=== PATIENT | female | born 1950 | race Caucasian/White ===

== ENCOUNTER 2016-12-16 16:13 | Emergency (ER) | payer OTHER ==
[~2016-12-16] VITALS: Wt 72.6 kg
[~2016-12-16 16:13] MED LIST: ASPI-COR81 M1 PO; ATENOLOL50 M1 PO; CEPHALEXIN500 M1 PO; CIPROFLOXACIN500 MG PO; CLARITIN10 MG PO; DARVOCET N 1001 TAB PO; GEODON60 MG PO; GLUCOPHAGE850 M1 PO; HYDROCODONE BIT1 T11 PO; KEFLEX500 MG PO; LASIX20 MG; LEVOXYL0.088 MG PO; LEVOXYL0.1 M1 PO; LIDEX0.05% T; LIPITOR40 MG PO; METFORMIN500 MG PO; MOTRIN800 MG PO; NAPROSYN500 MG PO; OMEPRAZOLE DR20 MG PO; PYRIDIUM100 MG PO; PYRIDIUM200 MG PO; TRAZODONE100 MG PO; TRAZODONE150 MG PO; TYLENOL W/CODEI1 TA2 PO; ULTRAM50 MG PO; VICODIN 5/500 505 MG PO; VITAMIN D-32000 UNIT PO; VITAMIN D2000 IU PO; WELLBUTRIN SR150 MG PO; ZESTRIL,PRINIVIL5 MG PO; ZYRTEC10 MG PO; [UNRECOGNIZED DRUG - REMARK] PO
[2016-12-16 17:32] LABS: BILIRUBIN NEGATIVE (NEGATIVE); BLOOD 2+ (NEGATIVE); CLARITY CLOUDY (CLEAR); COLOR YELLOW (YELLOW); GLUCOSE NEGATIVE (NEGATIVE); KETONE NEGATIVE (NEGATIVE); LEUKO ESTERASE 3+ (NEGATIVE); NITRITE NEGATIVE (NEGATIVE); PROTEIN NEGATIVE (NEGATIVE); SPECIFIC GRAVITY <= 1.005 (1.005-1.030); UROBILINOGEN 0.2 E.U./dl (0.2-1.0)
[2016-12-16 17:40] LABS: BACTERIA 2+; URINE REFLEX COMMENT YES (NO); WBC TNTC wbc/hpf (0-5)
[2016-12-16] MEDS ORDERED: CIPRO250 MG PO (17:46)
[2016-12-16] MEDS ORDERED: PYRIDIUM100 MG PO (17:47)
[2016-12-16] MEDS ORDERED: CEPHALEXIN500 M1 PO (18:13)
== END 2016-12-16 18:16 | disposition home or self-care (01) ==
LOC: ED 16:13
PROVIDERS: Nurse Practitioner Family
DX: N30.00 Acute cystitis without hematuria (principal); Z88.1 Allergy status to other antibiotic agents; Z88.2 Allergy status to sulfonamides; Z91.018 Allergy to other foods; Z79.899 Other long term (current) drug therapy

== ENCOUNTER 2017-05-08 12:34 | Emergency (ER) | payer OTHER ==
[~2017-05-08] VITALS: Ht 167.6 cm; Wt 69.4 kg
[~2017-05-08 12:34] MED LIST changes: +CIPRO250 MG PO
[2017-05-08 12:44] VITALS: BP 152/85
[2017-05-08] MEDS ORDERED: Motrin,Rufen800 MG PO (15:55)
== END 2017-05-08 16:07 | disposition home or self-care (01) ==
LOC: ED 12:34
DX: S20.211A Contusion of right front wall of thorax, initial encounter (principal); Z88.1 Allergy status to other antibiotic agents; Z79.899 Other long term (current) drug therapy; Z79.82 Long term (current) use of aspirin; W18.30XA Fall on same level, unspecified, initial encounter; Y93.9 Activity, unspecified; Y92.9 Unspecified place or not applicable; Y99.9 Unspecified external cause status

== ENCOUNTER → 2017-09-04 | Outpatient (CLI) | payer MEDICARE, MEDICAID ==
[~2017-09-04] MED LIST changes: +Motrin,Rufen800 MG PO
== END | disposition home or self-care (01) ==
LOC: US 14:39
DX: N13.30 Unspecified hydronephrosis (principal); N19 Unspecified kidney failure

== ENCOUNTER → 2017-12-24 | Outpatient (CLI) | payer OTHER | END | disposition home or self-care (01) | LOC: MAMMO 12-04 08:00 | DX: Z12.31 Encounter for screening mammogram for malignant neoplasm of breast (principal) ==

== ENCOUNTER 2018-06-26 16:29 | Emergency (ER) | payer OTHER ==
[~2018-06-26] VITALS: Ht 167.6 cm; Wt 74.8 kg
[2018-06-26 17:24] LABS: BASO % 0.2 % (0.0-1.0); EOS # 0.3 10*3/uL (0.0-0.4); EOS % 3.9 % (1.0-4.0); HEMATOCRIT 28.8 % (37.0-47.0); HEMOGLOBIN 9.4 g/dl (12.0-16.0); LYMPH # 1.5 10*3/uL (1.3-4.4); LYMPH % 17.7 % (27.0-41.0); MEAN CELL VOLUME 81.8 fl (81.0-99.0); MEAN CORPUSCULAR HGB 26.7 pg (27.0-31.0); MEAN CORPUSCULAR HGB CONC 32.6 g/dl (33.0-37.0); MEAN PLATELET VOLUME 9.2 fl (9.6-12.3); MONO # 0.6 10*3/uL (0.1-1.0); MONO % 6.7 % (3.0-9.0); NEUT % 71.1 % (47.0-73.0); PLATELET COUNT AUTOMATED 265 10*3/uL (130-400); RED BLOOD COUNT 3.52 10*6/uL (4.10-5.10); RED CELL DISTRI WIDTH 16.4 % (0-14.5); WHITE BLOOD COUNT 8.4 10*3/uL (4.8-10.8)
[2018-06-26 17:40] LABS: ALBUMIN 3.2 gm/dl (3.1-4.5); CREATININE 1.44 mg/dL (0.55-1.02); POTASSIUM 4.1 mmol/L (3.5-5.1); TOTAL PROTEIN 7.1 gm/dL (6.4-8.2)
[2018-06-26 18:58] VITALS: BP 144/64
[2018-06-26] MEDS ORDERED: CLINDAMYCIN HC300 MG PO (19:53)
[2018-06-26] MEDS ORDERED: PREDNISONE50 MG PO (19:53)
[2018-06-26] MEDS ORDERED: DIFLUCAN150 MG PO (20:06)
[2018-06-26] MEDS ORDERED: VENTOLIN 02.5 MG/3 M INH (20:07)
[2018-06-27] MEDS ORDERED: PEPCID20 MG PO (16:34)
== END 2018-06-26 20:02 | disposition home or self-care (01) ==
LOC: ED 16:29
PROVIDERS: Nurse Practitioner Family
DX: J45.909 Unspecified asthma, uncomplicated (principal); K12.2 Cellulitis and abscess of mouth; Z98.890 Other specified postprocedural states; Z98.51 Tubal ligation status; Z79.899 Other long term (current) drug therapy; Z79.82 Long term (current) use of aspirin; Z88.1 Allergy status to other antibiotic agents; Z88.8 Allergy status to other drugs, medicaments and biological substances

== ENCOUNTER 2018-06-27 14:31 | Emergency (ER) | payer OTHER ==
[~2018-06-27] VITALS: Ht 167.6 cm; Wt 75.7 kg
[~2018-06-27 14:31] MED LIST changes: +CLINDAMYCIN HC300 MG PO; +DIFLUCAN150 MG PO; +PREDNISONE50 MG PO; +VENTOLIN 02.5 MG/3 M INH
[2018-06-27 14:32] VITALS: BP 142/68
[2018-06-27 15:29] LABS: CREATININE 1.43 mg/dL (0.55-1.02); POTASSIUM 3.8 mmol/L (3.5-5.1)
[2018-06-27] MEDS ORDERED: PEPCID20 MG PO (16:34)
== END 2018-06-27 16:39 | disposition home or self-care (01) ==
LOC: ED 14:31
PROVIDERS: Emergency Medicine
DX: L50.8 Other urticaria (principal); T36.8X5A Adverse effect of other systemic antibiotics, initial encounter; R22.0 Localized swelling, mass and lump, head; J45.909 Unspecified asthma, uncomplicated; Z98.890 Other specified postprocedural states; Z98.51 Tubal ligation status; Z79.899 Other long term (current) drug therapy; Z79.82 Long term (current) use of aspirin; Z88.1 Allergy status to other antibiotic agents; Z88.2 Allergy status to sulfonamides; Z88.8 Allergy status to other drugs, medicaments and biological substances; Y92.9 Unspecified place or not applicable

== ENCOUNTER 2018-07-06 15:58 | Inpatient (IN) | payer OTHER ==
[~2018-07-06] VITALS: Ht 167.6 cm; Wt 76.2 kg
--- NOTE | ~2018-07-06 | O ---
[place], [place] OPERATIVE NOTE NAME: [facility]AL [facility] #: [id number] UNIT #: [id number] ROOM: 405 DOCTOR: LIBRADO CORBETT DO BIRTHDATE: [birth year] DOS: 07/08/2018 PREOPERATIVE DIAGNOSIS: Right knee patella fracture. POSTOPERATIVE DIAGNOSIS: Right knee patella fracture. OPERATIVE PROCEDURE: Open reduction and internal fixation with cerclage wire technique of the right patella. SURGEON: Librado Corbett DO. WEATHER TEACHER: Lucian Santos. ANESTHESIA: GERONIMO Sullivan, general LMA intubation. INDICATIONS: The patient is a 67-year-old female with a history of a fall on an uneven sidewalk near her home. She suffered a fracture of the right patella, which was transverse and significantly displaced. The risks and benefits of the procedure were explained to the patient preoperatively. Preoperative labs and x-rays were obtained. DESCRIPTION OF PROCEDURE: The right knee was marked preoperatively. The patient was brought to the operative suite. The patient was placed supine on the operative table. A general anesthetic with LMA intubation was performed. The patient received vancomycin 1 gram IV piggyback preoperatively. The timeout was performed. The right leg was confirmed. The right lower extremity was prepped and draped in the usual orthopedic fashion. A tourniquet was placed at the right upper thigh. The extremity was elevated and the tourniquet was inflated to 350 mmHg. A midline patellar incision was planned and marked with a marking pen. The area was injected with Marcaine 0.5% with epinephrine. The incision was made sharply with a scalpel. Subcutaneous tissue was spread down to the level of the quadriceps tendon and bursal tissue and patellar tendon. The fracture was identified and cleared of any hematoma. Under C-arm guidance, two 0.062 K-wires were driven from the level of the fracture superiorly through the patella to exit at the attachment of the quadriceps tendon. The fracture was reduced and held with towel clips. C-arm was utilized to confirm the reduction. The K-wires were then driven through the distal pole of the patella to exit at the level of the patellar tendon attachment. C-arm was again used to confirm the fracture site, it was adequately reduced. The fracture was also palpated and found to be congruent. The K-wires were cut. A single strand of 18-gauge wire was wrapped about the K-wires in a [id number] fashion. On the medial side, the cerclage wire was tightened, cut and tucked into the soft tissue to avoid any impingement. An additional 18-gauge cerclage wire was then placed around the circumference of the patella and this was tightened and cut laterally and tucked to avoid any irritation. The proximal ends of the K-wire were then bent in a hook-type configuration and advanced into the patella for added stability. The distal ends of the wire was then cut and bent in a similar fashion. The fixation and [place], [place] OPERATIVE NOTE NAME: FAISAL WINN UNIT #: [id number] ROOM: [facility] DOCTOR: LIBRADO CORBETT DO BIRTHDATE: [birth year] reduction were evaluated by C-arm in multiple planes and found to be adequate. The area was copiously irrigated with normal saline. The retinaculum both medially and laterally was repaired with 0 Vicryl. Further irrigation was performed. The subcutaneous tissue was closed with 2-0 Vicryl followed by skin freddy. The area was again injected with Marcaine 0.5% with epinephrine. The dressing was completed with Xeroform, 4 x 4s, cast padding, ABDs, and an Mike bandage. The patient was then placed into her knee immobilizer. The tourniquet had been released prior to application of the dressing. The anesthetic was reversed. The patient was extubated and taken to the recovery room in satisfactory condition. Sponge and needle count correct. ESTIMATED BLOOD LOSS: 25 mL. SPECIMENS: None. DRAINS: None. PACKING: None. COMPLICATIONS: None. IMPLANTS: K-wires x 2 measuring 0.062, 18-gauge wires x 2. FINDINGS: 1. Transverse fracture of the patella with complete displacement. 2. Retinaculum disruption. LIBRADO CORBETT DO CM:OPRECORD:OPERATIVE NOTE [id number] LIBRADO CORBETT DO 07/09/18 1153 interface
--- NOTE | ~2018-07-06 | EKG ---
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
--- NOTE | ~2018-07-06 | EKG ---
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 Electronically Signed On 07-07-2018 18:54:24 PDT by Mu Almonte MD CM:EKGRPT:ELECTROCARDIOGRAM REPORT 1818 1854 BIBI ELLINGTON DRAFT REPORT BIBI GU
[~2018-07-06 15:58] MED LIST changes: +PEPCID20 MG PO
[2018-07-06 16:00] VITALS: BP 128/73
[2018-07-06 17:13] LABS: BASO % 0.2 % (0.0-1.0); EOS # 0.4 10*3/uL (0.0-0.4); EOS % 4.6 % (1.0-4.0); HEMOGLOBIN 9.6 g/dl (12.0-16.0); LYMPH # 1.9 10*3/uL (1.3-4.4); LYMPH % 20.6 % (27.0-41.0); MEAN CELL VOLUME 80.8 fl (81.0-99.0); MEAN CORPUSCULAR HGB 26.7 pg (27.0-31.0); MEAN CORPUSCULAR HGB CONC 33.1 g/dl (33.0-37.0); MEAN PLATELET VOLUME 9.2 fl (9.6-12.3); MONO # 0.5 10*3/uL (0.1-1.0); NEUT # 6.1 10*3/uL (2.3-7.9); NEUT % 68.3 % (47.0-73.0); PLATELET COUNT AUTOMATED 299 10*3/uL (130-400); RED BLOOD COUNT 3.59 10*6/uL (4.10-5.10); RED CELL DISTRI WIDTH 16.3 % (0-14.5)
[2018-07-06 17:22] LABS: ACT PARTIAL THROMBO TIME 21.1 SECONDS (20.8-31.5)
[2018-07-06 17:29] LABS: ALBUMIN 3.2 gm/dl (3.1-4.5); CREATININE 1.53 mg/dL (0.55-1.02); POTASSIUM 4.1 mmol/L (3.5-5.1); TOTAL PROTEIN 6.5 gm/dL (6.4-8.2)
[2018-07-06 18:00] VITALS: BP 123/71; BP 132/74
[2018-07-06] MEDS ORDERED: COMBIVENT RESPIM4 GM INH (18:09)
[2018-07-06] MEDS ORDERED: REMERON15 M2 PO (18:14)
[2018-07-06 20:00] VITALS: BP 133/60
[2018-07-07] VITALS: BP 130/66
[2018-07-07 03:38] LABS: BILIRUBIN NEGATIVE (NEGATIVE); BLOOD NEGATIVE (NEGATIVE); CLARITY CLEAR (CLEAR); COLOR YELLOW (YELLOW); GLUCOSE TRACE (NEGATIVE); KETONE NEGATIVE (NEGATIVE); LEUKO ESTERASE NEGATIVE (NEGATIVE); NITRITE NEGATIVE (NEGATIVE); PH 6.5 (5.0-9.0); SPECIFIC GRAVITY <= 1.005 (1.005-1.030); UROBILINOGEN 0.2 E.U./dl (0.2-1.0)
[2018-07-07 03:50] LABS: BACTERIA TRACE; EPITHELIAL CELLS 0-3; WBC 0-2 wbc/hpf (0-5)
[2018-07-07 04:00] VITALS: BP 118/62
[2018-07-07 06:26] LABS: BASO % 0.2 % (0.0-1.0); EOS # 0.2 10*3/uL (0.0-0.4); HEMATOCRIT 25.5 % (37.0-47.0); HEMOGLOBIN 8.4 g/dl (12.0-16.0); LYMPH # 1.9 10*3/uL (1.3-4.4); LYMPH % 23.5 % (27.0-41.0); MEAN CELL VOLUME 81.5 fl (81.0-99.0); MEAN CORPUSCULAR HGB 26.8 pg (27.0-31.0); MEAN CORPUSCULAR HGB CONC 32.9 g/dl (33.0-37.0); MEAN PLATELET VOLUME 9.4 fl (9.6-12.3); MONO # 0.5 10*3/uL (0.1-1.0); MONO % 5.9 % (3.0-9.0); NEUT # 5.4 10*3/uL (2.3-7.9); NEUT % 67.2 % (47.0-73.0); PLATELET COUNT AUTOMATED 278 10*3/uL (130-400); RED BLOOD COUNT 3.13 10*6/uL (4.10-5.10); RED CELL DISTRI WIDTH 16.5 % (0-14.5); WHITE BLOOD COUNT 8.1 10*3/uL (4.8-10.8)
[2018-07-07 06:36] LABS: ACT PARTIAL THROMBO TIME 22.3 SECONDS (20.8-31.5)
[2018-07-07 06:49] LABS: ALBUMIN 2.6 gm/dl (3.1-4.5); CREATININE 1.33 mg/dL (0.55-1.02); PHOSPHOROUS 2.7 mg/dL (2.5-4.9); POTASSIUM 4.1 mmol/L (3.5-5.1); TOTAL PROTEIN 5.8 gm/dL (6.4-8.2)
[2018-07-07 06:53] LABS: THYROID STIM HORMONE (HS) 8.88 uIU/ml (0.358-4.75)
[2018-07-07 07:53] LABS: VITAMIN D, 25-HYDROXY 71.4 ng/mL (30-100)
[2018-07-07 08:00] VITALS: BP 130/87
[2018-07-07 12:00] VITALS: BP 140/60
[2018-07-07] MEDS ORDERED: ZANTAC 150150 MG PO (15:59)
[2018-07-07 16:00] VITALS: BP 128/58
[2018-07-07 20:00] VITALS: BP 126/60
[2018-07-08] VITALS (11 sets, daily range): BP systolic 116–169; BP diastolic 59–73
[2018-07-08 06:21] LABS: BASO % 0.3 % (0.0-1.0); EOS # 0.3 10*3/uL (0.0-0.4); EOS % 4.2 % (1.0-4.0); HEMATOCRIT 27.3 % (37.0-47.0); HEMOGLOBIN 8.7 g/dl (12.0-16.0); LYMPH # 1.5 10*3/uL (1.3-4.4); LYMPH % 19.3 % (27.0-41.0); MEAN CELL VOLUME 82.5 fl (81.0-99.0); MEAN CORPUSCULAR HGB 26.3 pg (27.0-31.0); MEAN CORPUSCULAR HGB CONC 31.9 g/dl (33.0-37.0); MEAN PLATELET VOLUME 9.7 fl (9.6-12.3); MONO # 0.5 10*3/uL (0.1-1.0); MONO % 6.2 % (3.0-9.0); NEUT # 5.3 10*3/uL (2.3-7.9); NEUT % 69.7 % (47.0-73.0); PLATELET COUNT AUTOMATED 258 10*3/uL (130-400); RED BLOOD COUNT 3.31 10*6/uL (4.10-5.10); RED CELL DISTRI WIDTH 16.3 % (0-14.5); WHITE BLOOD COUNT 7.6 10*3/uL (4.8-10.8)
[2018-07-08 06:36] LABS: INTERNATIONAL NORM RATIO 0.9 (2.0-3.5)
[2018-07-08 06:43] LABS: CREATININE 1.31 mg/dL (0.55-1.02); POTASSIUM 3.8 mmol/L (3.5-5.1)
[2018-07-09] VITALS: BP 152/59
[2018-07-09 06:43] LABS: HEMATOCRIT 25.5 % (37.0-47.0); HEMOGLOBIN 8.2 g/dl (12.0-16.0); MEAN CELL VOLUME 82.8 fl (81.0-99.0); MEAN CORPUSCULAR HGB 26.6 pg (27.0-31.0); MEAN CORPUSCULAR HGB CONC 32.2 g/dl (33.0-37.0); MEAN PLATELET VOLUME 10.1 fl (9.6-12.3); PLATELET COUNT AUTOMATED 237 10*3/uL (130-400); RED BLOOD COUNT 3.08 10*6/uL (4.10-5.10); RED CELL DISTRI WIDTH 16.3 % (0-14.5); WHITE BLOOD COUNT 8.2 10*3/uL (4.8-10.8)
[2018-07-09 07:21] LABS: CREATININE 1.22 mg/dL (0.55-1.02); POTASSIUM 4.4 mmol/L (3.5-5.1)
[2018-07-09 07:34] LABS: PLATELET SUFFICIENCY NORMAL (NORMAL); TOTAL CELLS COUNTED 100 #CELLS
[2018-07-09 08:00] VITALS: BP 156/70
[2018-07-09 12:00] VITALS: BP 119/52
[2018-07-09 16:00] VITALS: BP 141/68
[2018-07-09 20:00] VITALS: BP 147/55
[2018-07-10] VITALS: BP 145/83
[2018-07-10 06:26] LABS: INTERNATIONAL NORM RATIO 0.9 (2.0-3.5)
[2018-07-10 07:43] LABS: BASO % 0.2 % (0.0-1.0); EOS # 0.1 10*3/uL (0.0-0.4); HEMATOCRIT 25.7 % (37.0-47.0); HEMOGLOBIN 8.3 g/dl (12.0-16.0); LYMPH % 22.5 % (27.0-41.0); MEAN CELL VOLUME 83.4 fl (81.0-99.0); MEAN CORPUSCULAR HGB 26.9 pg (27.0-31.0); MEAN CORPUSCULAR HGB CONC 32.3 g/dl (33.0-37.0); MEAN PLATELET VOLUME 10.1 fl (9.6-12.3); MONO # 0.7 10*3/uL (0.1-1.0); MONO % 7.4 % (3.0-9.0); NEUT % 68.6 % (47.0-73.0); PLATELET COUNT AUTOMATED 271 10*3/uL (130-400); RED BLOOD COUNT 3.08 10*6/uL (4.10-5.10); RED CELL DISTRI WIDTH 16.7 % (0-14.5); WHITE BLOOD COUNT 8.8 10*3/uL (4.8-10.8)
[2018-07-10 07:52] LABS: BUN 13 mg/dl (7-24); CHLORIDE 104 mmol/L (98-107); SODIUM 138 mmol/L (136-145)
[2018-07-10 08:06] VITALS: BP 137/72
[2018-07-10 12:00] VITALS: BP 148/76
[2018-07-10 15:39] VITALS: BP 118/60
[2018-07-10 20:00] VITALS: BP 134/88
[2018-07-11] VITALS: BP 159/70
[2018-07-11 06:48] LABS: BASO % 0.3 % (0.0-1.0); EOS # 0.2 10*3/uL (0.0-0.4); EOS % 2.8 % (1.0-4.0); HEMATOCRIT 24.4 % (37.0-47.0); HEMOGLOBIN 7.9 g/dl (12.0-16.0); LYMPH # 1.8 10*3/uL (1.3-4.4); LYMPH % 24.2 % (27.0-41.0); MEAN CELL VOLUME 83.3 fl (81.0-99.0); MEAN CORPUSCULAR HGB CONC 32.4 g/dl (33.0-37.0); MEAN PLATELET VOLUME 9.8 fl (9.6-12.3); MONO # 0.6 10*3/uL (0.1-1.0); MONO % 8.3 % (3.0-9.0); NEUT # 4.8 10*3/uL (2.3-7.9); NEUT % 64.1 % (47.0-73.0); PLATELET COUNT AUTOMATED 271 10*3/uL (130-400); RED BLOOD COUNT 2.93 10*6/uL (4.10-5.10); RED CELL DISTRI WIDTH 17.1 % (0-14.5); WHITE BLOOD COUNT 7.5 10*3/uL (4.8-10.8)
[2018-07-11 07:03] LABS: INTERNATIONAL NORM RATIO 0.9 (2.0-3.5)
[2018-07-11 07:19] LABS: BUN 11 mg/dl (7-24); CHLORIDE 104 mmol/L (98-107); CREATININE 1.02 mg/dL (0.55-1.02); SODIUM 139 mmol/L (136-145)
[2018-07-11 08:00] VITALS: BP 131/66
[2018-07-11 12:00] VITALS: BP 117/57
[2018-07-11 16:00] VITALS: BP 150/79
[2018-07-11 20:00] VITALS: BP 124/87
[2018-07-12] VITALS: BP 130/60
[2018-07-12 06:48] LABS: INTERNATIONAL NORM RATIO 0.9 (2.0-3.5)
[2018-07-12 07:55] LABS: BASO % 0.2 % (0.0-1.0); EOS # 0.2 10*3/uL (0.0-0.4); EOS % 3.4 % (1.0-4.0); HEMATOCRIT 23.3 % (37.0-47.0); HEMOGLOBIN 7.5 g/dl (12.0-16.0); LYMPH # 1.4 10*3/uL (1.3-4.4); LYMPH % 23.3 % (27.0-41.0); MEAN CELL VOLUME 82.6 fl (81.0-99.0); MEAN CORPUSCULAR HGB 26.6 pg (27.0-31.0); MEAN CORPUSCULAR HGB CONC 32.2 g/dl (33.0-37.0); MEAN PLATELET VOLUME 9.5 fl (9.6-12.3); MONO # 0.5 10*3/uL (0.1-1.0); MONO % 7.6 % (3.0-9.0); NEUT # 3.9 10*3/uL (2.3-7.9); NEUT % 65.3 % (47.0-73.0); PLATELET COUNT AUTOMATED 265 10*3/uL (130-400); RED BLOOD COUNT 2.82 10*6/uL (4.10-5.10); RED CELL DISTRI WIDTH 17.2 % (0-14.5); WHITE BLOOD COUNT 5.9 10*3/uL (4.8-10.8)
[2018-07-12 08:00] VITALS: BP 140/69
[2018-07-12 08:08] LABS: CREATININE 1.16 mg/dL (0.55-1.02); POTASSIUM 3.9 mmol/L (3.5-5.1)
[2018-07-12 12:00] VITALS: BP 139/67
[2018-07-12 16:00] VITALS: BP 137/62
[2018-07-12 20:00] VITALS: BP 152/66
[2018-07-13] VITALS: BP 124/65
[2018-07-13 06:39] LABS: BASO % 0.2 % (0.0-1.0); EOS # 0.3 10*3/uL (0.0-0.4); EOS % 4.8 % (1.0-4.0); HEMATOCRIT 22.4 % (37.0-47.0); HEMOGLOBIN 7.2 g/dl (12.0-16.0); LYMPH # 1.3 10*3/uL (1.3-4.4); LYMPH % 23.9 % (27.0-41.0); MEAN CORPUSCULAR HGB 26.7 pg (27.0-31.0); MEAN CORPUSCULAR HGB CONC 32.1 g/dl (33.0-37.0); MEAN PLATELET VOLUME 9.8 fl (9.6-12.3); MONO # 0.4 10*3/uL (0.1-1.0); MONO % 7.7 % (3.0-9.0); NEUT # 3.3 10*3/uL (2.3-7.9); NEUT % 63.2 % (47.0-73.0); PLATELET COUNT AUTOMATED 253 10*3/uL (130-400); RED CELL DISTRI WIDTH 17.5 % (0-14.5); WHITE BLOOD COUNT 5.2 10*3/uL (4.8-10.8)
[2018-07-13 07:12] LABS: ALBUMIN 2.4 gm/dl (3.1-4.5); ALKALINE PHOSPHATASE 85 U/L (45-117); BUN 12 mg/dl (7-24); CHLORIDE 109 mmol/L (98-107); CREATININE 1.04 mg/dL (0.55-1.02); POTASSIUM 3.9 mmol/L (3.5-5.1); SGOT/AST 19 IU/L (3-35); SGPT/ALT 20 U/L (12-78); SODIUM 139 mmol/L (136-145)
[2018-07-13 07:22] LABS: INTERNATIONAL NORM RATIO 0.9 (2.0-3.5)
[2018-07-13 12:00] VITALS: BP 123/78
[2018-07-13] MEDS ORDERED: FEROSUL325 MG PO (13:54)
[2018-07-13] MEDS ORDERED: LEADER ASPIRIN325 MG PO (13:55)
[2018-07-13] MEDS ORDERED: NORCO 5-325 TA1 EACH PO (13:58)
== END 2018-07-13 16:53 | disposition other institution (70) | DRG 515 ==
LOC: ED 15:58 → EDHOLD 17:15 → 4E 17:15
PROVIDERS: Internal Medicine; Nurse Practitioner Family; Orthopaedic Surgery; Student in an Organized Health Care Education/Training Program
PROC: 2W3QX1Z Immobilization of Right Lower Leg using Splint (ICD-10-PCS; principal; 2018-07-06)
PROC: 0QSD04Z Reposition Right Patella with Internal Fixation Device, Open Approach (ICD-10-PCS; 2018-07-08)
DX: S82.031A Displaced transverse fracture of right patella, initial encounter for closed fracture (principal); N17.0 Acute kidney failure with tubular necrosis; E87.1 Hypo-osmolality and hyponatremia; E44.1 Mild protein-calorie malnutrition; S82.041A Displaced comminuted fracture of right patella, initial encounter for closed fracture; S86.811A Strain of other muscle(s) and tendon(s) at lower leg level, right leg, initial encounter; R29.6 Repeated falls; N18.3 Chronic kidney disease, stage 3 (moderate); E11.22 Type 2 diabetes mellitus with diabetic chronic kidney disease; E03.9 Hypothyroidism, unspecified; I12.9 Hypertensive chronic kidney disease with stage 1 through stage 4 chronic kidney disease, or unspecified chronic kidney disease; K21.9 Gastro-esophageal reflux disease without esophagitis; E55.9 Vitamin D deficiency, unspecified; R00.0 Tachycardia, unspecified; D50.9 Iron deficiency anemia, unspecified; E11.65 Type 2 diabetes mellitus with hyperglycemia; E78.5 Hyperlipidemia, unspecified; J45.909 Unspecified asthma, uncomplicated; G47.00 Insomnia, unspecified; F32.9 Major depressive disorder, single episode, unspecified; W01.0XXA Fall on same level from slipping, tripping and stumbling without subsequent striking against object, initial encounter; S80.211A Abrasion, right knee, initial encounter; Z88.8 Allergy status to other drugs, medicaments and biological substances; Z88.2 Allergy status to sulfonamides; Z79.899 Other long term (current) drug therapy; Z79.82 Long term (current) use of aspirin; Z90.89 Acquired absence of other organs; Z98.51 Tubal ligation status; Z82.49 Family history of ischemic heart disease and other diseases of the circulatory system; Z82.3 Family history of stroke; Z83.3 Family history of diabetes mellitus; Z84.89 Family history of other specified conditions; Y93.89 Activity, other specified; Y92.89 Other specified places as the place of occurrence of the external cause; Y99.8 Other external cause status; Z68.27 Body mass index [BMI] 27.0-27.9, adult

== ENCOUNTER → 2018-07-24 | Outpatient (CLI) | payer OTHER ==
[~2018-07-24] MED LIST changes: +COMBIVENT RESPIM4 GM INH; +FEROSUL325 MG PO; +LEADER ASPIRIN325 MG PO; +NORCO 5-325 TA1 EACH PO; +REMERON15 M2 PO; +ZANTAC 150150 MG PO
== END | disposition home or self-care (01) ==
LOC: ORTHO 00:52
DX: S82.001D Unspecified fracture of right patella, subsequent encounter for closed fracture with routine healing (principal); X58.XXXD Exposure to other specified factors, subsequent encounter

== ENCOUNTER → 2018-08-14 | Outpatient (CLI) | payer OTHER | END | disposition home or self-care (01) | LOC: ORTHO 02:16 | DX: S82.041D Displaced comminuted fracture of right patella, subsequent encounter for closed fracture with routine healing (principal); X58.XXXD Exposure to other specified factors, subsequent encounter ==

== ENCOUNTER → 2018-10-16 | Outpatient (CLI) | payer OTHER ==
[~2018-10-16] MED LIST changes: +ASPIR 8181 MG PO; +Carafate1 GM/10 ML PO; +PROTONIX40 MG PO
== END | disposition home or self-care (01) ==
LOC: ORTHO 02:22
DX: S82.041D Displaced comminuted fracture of right patella, subsequent encounter for closed fracture with routine healing (principal); X58.XXXD Exposure to other specified factors, subsequent encounter

== ENCOUNTER 2018-10-22 13:45 | Inpatient (IN) | payer OTHER ==
[~2018-10-22] VITALS: Ht 167.6 cm; Wt 73.5 kg
--- NOTE | ~2018-10-22 | O ---
[place], [place] OPERATIVE NOTE NAME: FAISAL WINN UNIT #: [id number] ROOM: 519 DOCTOR: NOÉ RUBIN MD BIRTHDATE: [birth year] DOS: 10/23/2018 GASTROENDOSCOPIC REPORT INDICATIONS: This is a 68-year-old patient who has presented with multiple medical issues among which has been hematemesis, GI bleed, undergoing investigation. PROCEDURE: Today's procedure part of investigation is panendoscopy and colonoscopy. PREMEDICATION: Propofol. SCOPE: Olympus forward-viewing gastroscope Q10 video. REPORT: After putting the patient in left lateral position and application of lubricant to the scope, the scope was introduced. Thereafter, under direct visualization, advanced through the length of esophagus. Lower third of the esophagus is entirely ulcerated secondary to reflux. Hiatal hernia was noticed. Gastric pouch was entered. Gastritis seen. Duodenal bulb, second and third part within normal limit. The patient extubated, tolerated the procedure well. IMPRESSION: Diffuse distal esophageal ulceration, hiatal hernia. PLAN AND DISCUSSION: I am going to proceed with colonoscopy. GASTROENDOSCOPIC REPORT INDICATIONS: The patient has presented with chief complaint of GI bleed, undergoing investigation. PROCEDURE: Today's procedure part of investigation is colonoscopy, ruling out synchronous site of the GI bleed, i.e., ischemic bowel. OPERATIVE TECHNIQUE: After putting the patient in left lateral position and application of lubricant to the rectal pouch and digital examination, scope was introduced. Thereafter, under direct visualization, I advanced through the length of colon without difficulty. Scattered diverticulosis was seen. Base of cecum explored, appendiceal orifice identified, ileocecal valve was defined. The patient extubated, tolerated the procedure well. IMPRESSION: Diverticulosis, source of bleeding limited to upper gastrointestinal tract. PLAN AND DISCUSSION: PPI, sucralfate, soft diet. GERD, antireflux and clinical reassessment. Follow up on H and H. [place], [place] OPERATIVE NOTE NAME: FAISAL WINN UNIT #: [id number] ROOM: 519 DOCTOR: NOÉ RUBIN MD BIRTHDATE: [birth year] NOÉ RUBIN MD CM:OPRECORD:OPERATIVE NOTE 1738 40 NOÉ RUBIN MD 10/23/181941 interface
--- NOTE | ~2018-10-22 | CON ---
[place], [place] REPORT OF CONSULTATION NAME: FAISAL WINN [facility] #: [id number] UNIT #: [id number] ROOM: 519 DOCTOR: NOÉ RUBIN MD BIRTHDATE: [birth year] DOS: 10/23/2018 GASTROENDOSCOPIC CONSULTATION REPORT HISTORY OF PRESENT ILLNESS: This is a 68-year-old patient who presented with chief complaint of hematemesis, epigastric distress and abdominal pain. Apparently, she had nocturnal emesis, which was observed by her daughter and she was admitted therefore for definitive evaluation. The patient has history of degenerative joint disease and postsurgical right knee. The patient's white blood cell was 9 at the time of admission with H and H of 12 and 35, platelets 256. INR 1.0. Comprehensive metabolic panel. Electrolytes balanced. Troponin within normal limits. Her BUN and creatinine is 17 and 1.0 with GFR 55. Chest x-ray was assessed and no acute process. Troponin remained within normal limits, repeated and was normal limit again. CBC differential was reassessed. Slight drop in H and H of 10 and 33 identified. Electrolytes remained normal. PAST MEDICAL HISTORY: Associated with degenerative joint disease, history of obesity, diabetes mellitus, renal insufficiency, asthma, hypothyroidism and hyperglycemia. PAST SURGICAL HISTORY: Right knee, history of open reduction and internal fixation of the right knee, hernia repair, tonsillectomy, tubal ligation and bladder repair. ALLERGIES: CLINDAMYCIN, AMOXICILLIN, CIPROFLOXACIN, CLAVULANIC ACID, BACTRIM, AND ZITHROMAX. MEDICATIONS: List has been reviewed. SOCIAL HISTORY: Nonsmoker, nonalcohol consumer. FAMILY HISTORY: Noncontributory. REVIEW OF SYSTEMS: HEENT: Denies double vision or blurred vision. RESPIRATORY: Denies shortness of breath. CARDIOVASCULAR: Denies acute chest pain. DIGESTIVE SYSTEM: Hematemesis. PHYSICAL EXAMINATION: GENERAL: Appears to be alert, oriented to time, place, and person. HEENT: Head normocephalic, nontraumatic. Mouth and buccal mucosa benign. Dentures in place. NECK: Supple. No thyromegaly, no cervical lymphadenopathy. CHEST: Symmetric anatomy, equal expansion. No wheeze, no rhonchi. HEART: Normal sinus rhythm, no gallop, no murmur. ABDOMEN: Soft. No hepato-organomegaly. Bowel sounds present. EXTREMITIES: Scar of surgery, right knee was noticed. NEUROLOGICAL: Fully alert and oriented. [place], [place] REPORT OF CONSULTATION NAME: FAISAL WINN UNIT #: [id number] ROOM: [facility] DOCTOR: NOÉ RUBIN MD BIRTHDATE: [birth year] PLAN AND DISCUSSION: We are going to proceed with endoscopic assessment of upper and lower GI tract and clinical reassessment. NOÉ RUBIN MD CM:CONSTR:REPORT OF CONSULTATION 1710 11/04/18 1100 interface
--- NOTE | ~2018-10-22 | EKG ---
[place], [place] ELECTROCARDIOGRAM REPORT NAME: FAISAL WINN UNIT #: [id number] ROOM: 519 DOCTOR: CHANDANA DRAFT REPORT BIRTHDATE: [birth year] 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
[2018-10-22 13:45] VITALS: BP 147/91
[~2018-10-22 13:45] MED LIST changes: -ASPIR 8181 MG PO; -Carafate1 GM/10 ML PO; -PROTONIX40 MG PO
--- NOTE | 2018-10-22 14:18 | NUR ---
IN ROM AT THIS TIME WITH MED STUDENT FOR OCCULT BLOOD TEST. POSTITIVE FOR STOOL.
[2018-10-22 14:43] LABS: BASO # 0.1 10*3/uL (0.0-0.1); BASO % 0.5 % (0.0-1.0); EOS # 0.2 10*3/uL (0.0-0.4); EOS % 1.9 % (1.0-4.0); HEMATOCRIT 35.3 % (37.0-47.0); LYMPH # 1.5 10*3/uL (1.3-4.4); LYMPH % 15.5 % (27.0-41.0); MEAN CELL VOLUME 83.5 fl (81.0-99.0); MEAN CORPUSCULAR HGB 28.4 pg (27.0-31.0); MONO # 0.7 10*3/uL (0.1-1.0); NEUT # 7.2 10*3/uL (2.3-7.9); NEUT % 74.7 % (47.0-73.0); PLATELET COUNT AUTOMATED 256 10*3/uL (130-400); RED BLOOD COUNT 4.23 10*6/uL (4.10-5.10); RED CELL DISTRI WIDTH 14.8 % (0-14.5); WHITE BLOOD COUNT 9.6 10*3/uL (4.8-10.8)
[2018-10-22 14:52] LABS: ACT PARTIAL THROMBO TIME 22.6 SECONDS (20.8-31.5)
[2018-10-22 15:03] LABS: ALBUMIN 3.2 gm/dl (3.1-4.5); ALKALINE PHOSPHATASE 130 U/L (45-117); BUN 17 mg/dl (7-24); CHLORIDE 101 mmol/L (98-107); POTASSIUM 3.7 mmol/L (3.5-5.1); SGOT/AST 17 IU/L (3-35); SGPT/ALT 23 U/L (12-78); SODIUM 135 mmol/L (136-145); TOTAL PROTEIN 7.2 gm/dL (6.4-8.2); TROPONIN I < 0.015 ng/ml (<0.045)
--- NOTE | 2018-10-22 15:56 | NUR ---
A 68, admitted to 5E, under the services of BEE Parks DO with a diagnosis of HEMATEMESIS. Chief complaint is VOMITING YESTERDAY EVENING WITH EPIGASTIC PAIN. PAIN WORSENED THROUGHOUT THE NIGHT. STATES THAT SHE HAD PAIN AND EMESIS TODAY WELL. STATES EMESIS WAS RED/BROWN. Patient arrived via stretcher from ER. Monitor applied. Initial assessment completed. Vital signs taken and recorded. See assessment for past medical history, medications and allergies. Patient and/or family oriented to unit. [facility] visitation policy reviewed. CINTHYA VALENCIA
[2018-10-22 16:00] VITALS: BP 172/80
[2018-10-22] MEDS ORDERED: ASPIR 8181 MG PO (16:05)
--- NOTE | 2018-10-22 16:20 | NUR ---
Called Dr. Vargas's cell and no answer, message left to call hospital for notification of consult details.
--- NOTE | 2018-10-22 17:31 | NUR ---
Attempted to reach Dr. Vargas via cell. He answered and immediately said I'll call you back and hung up. Awaiting call back.
[2018-10-22 20:00] VITALS: BP 152/85
--- NOTE | 2018-10-22 22:30 | NUR ---
SPOKE WITH DR RUBIN REGARDING CONSULT. NEW ORDERS RECEIVED FOR PT TO HAVE COLO PREP AND TO HAVE EGD/COLO IN AM WITH DR RUBIN. APPROPRIATE ORDERS PLACED AND PT AWARE.
--- NOTE | 2018-10-22 23:00 | NUR ---
PT STARTED ON COLO PREP. PREP EXPLAINED TO PT. NPO STATUS EXPLAINED TO PT. PT STATES THAT SHE UNDERSTANDS. WILL CONTINUE TO MONITOR. CALL LIGHT IN REACH.
[2018-10-23] VITALS: BP 157/80
--- NOTE | 2018-10-23 05:00 | NUR ---
FLEETS ENEMA GIVEN AT THIS TIME FOR DECREASED BOWEL MOVEMENTS PER PT. PT TOLERATED WELL. WILL CONTINUE TO MONITOR PT.
--- NOTE | 2018-10-23 06:30 | NUR ---
TAP WATER ENEMA GIVEN TO PT AT THIS TIME DUE TO PT STILL HAVING SOLID/NON CLEAR STOOL. TOLERATED WELL BY PT. WILL CONTINUE TO MONITOR. CALL LIGHT IN REACH.
[2018-10-23 06:52] LABS: BASO % 0.6 % (0.0-1.0); EOS # 0.3 10*3/uL (0.0-0.4); EOS % 4.4 % (1.0-4.0); HEMATOCRIT 33.2 % (37.0-47.0); HEMOGLOBIN 10.6 g/dl (12.0-16.0); LYMPH # 1.5 10*3/uL (1.3-4.4); LYMPH % 23.7 % (27.0-41.0); MEAN CELL VOLUME 85.8 fl (81.0-99.0); MEAN CORPUSCULAR HGB 27.4 pg (27.0-31.0); MEAN CORPUSCULAR HGB CONC 31.9 g/dl (33.0-37.0); MEAN PLATELET VOLUME 10.2 fl (9.6-12.3); MONO # 0.6 10*3/uL (0.1-1.0); MONO % 9.5 % (3.0-9.0); NEUT # 3.8 10*3/uL (2.3-7.9); NEUT % 61.3 % (47.0-73.0); PLATELET COUNT AUTOMATED 230 10*3/uL (130-400); RED BLOOD COUNT 3.87 10*6/uL (4.10-5.10); RED CELL DISTRI WIDTH 15.1 % (0-14.5); WHITE BLOOD COUNT 6.2 10*3/uL (4.8-10.8)
[2018-10-23 07:10] LABS: BUN 13 mg/dl (7-24); CHLORIDE 105 mmol/L (98-107); CREATININE 0.88 mg/dL (0.55-1.02); PHOSPHOROUS 3.3 mg/dL (2.5-4.9); POTASSIUM 3.8 mmol/L (3.5-5.1); SODIUM 138 mmol/L (136-145)
--- NOTE | 2018-10-23 08:20 | NUR ---
Additional tap water enema given. Pt states she is unable to hold water for any length of time. After 1-2 minutes tap water instilled was coming out. Pt is having watery stool with flexs of stool.
--- NOTE | 2018-10-23 09:09 | NUR ---
classroom monitor dc at this time per orders.
--- NOTE | 2018-10-23 11:03 | NUR ---
Student Services Representative in to talk to patient. Patient states lives at HOME with ALONE. There are NO steps in the home. Physician: Nalini RENO [facility]acy: [facility] Home health services: NONE Patient's level of ADLs: INDEPENDENT Patient has working utilities: YES DME: NONE AT THIS TIME, BUT HAS WALKER, POTTY CHAIR AT HOME Follow-up physician's appointment after d/c: WILL BE MADE BY HOSPITALIST NURSE DIRECTOR ON DISCHARGE Does patient want to access PORTAL?: NO Discharge plan PT STATES SHE LIVES AT HOME ALONE AND IS INDEPENDENT IN CARE. STATES SHE HAS A WALKER AND POTTY CHAIR AT HOME FROM WHEN SHE HAD A [employer] FRACTURE BUT DOES NOT USE THEM NOW, ALSO HAD HOME HEALTH THEN BUT WAS RECENTLY DISCHARGED. PT DENIES NEED FOR HOME HEALTH AGAIN. CAN BE DISCHARGED TO HOME WHEN MEDICALLY STABLE. WILL CONTINUE TO FOLLOW.. WENDI PEREZ
[2018-10-23 12:00] VITALS: BP 147/64
[2018-10-23 16:00] VITALS: BP 146/61
--- NOTE | 2018-10-23 16:25 | NUR ---
Surgery here to take pt to OR.
[2018-10-23 17:31] VITALS: BP 146/72
--- NOTE | 2018-10-23 17:42 | NUR ---
Received call from OR and they put Dr. Vargas on regarding pt. Dr. Vargas states that pt has diffuse esphogeal ulcers due to GERD, hiatal hernia, and diverticulosis. States to continue iv protonix 40 mg bid (already ordered), carafate slurry 2 gram 2h ac/hs, HOB elevated 10 inches at all times, GERD diet and H and H in am.
[2018-10-23 17:46] VITALS: BP 142/84
[2018-10-23 18:01] VITALS: BP 150/75
--- NOTE | 2018-10-23 18:11 | NUR ---
Pt returned to floor via bed. Explained new orders for diet. HOB at 30 degrees and locked.
[2018-10-24] VITALS: BP 152/83
[2018-10-24 06:54] LABS: BASO % 0.9 % (0.0-1.0); EOS # 0.4 10*3/uL (0.0-0.4); EOS % 8.7 % (1.0-4.0); HEMATOCRIT 30.9 % (37.0-47.0); LYMPH # 1.6 10*3/uL (1.3-4.4); LYMPH % 35.7 % (27.0-41.0); MEAN CELL VOLUME 85.1 fl (81.0-99.0); MEAN CORPUSCULAR HGB 27.5 pg (27.0-31.0); MEAN CORPUSCULAR HGB CONC 32.4 g/dl (33.0-37.0); MEAN PLATELET VOLUME 9.9 fl (9.6-12.3); MONO # 0.4 10*3/uL (0.1-1.0); MONO % 8.2 % (3.0-9.0); NEUT % 46.5 % (47.0-73.0); PLATELET COUNT AUTOMATED 214 10*3/uL (130-400); RED BLOOD COUNT 3.63 10*6/uL (4.10-5.10); RED CELL DISTRI WIDTH 14.9 % (0-14.5); WHITE BLOOD COUNT 4.4 10*3/uL (4.8-10.8)
[2018-10-24 07:11] LABS: CHLORIDE 107 mmol/L (98-107); POTASSIUM 3.9 mmol/L (3.5-5.1); SODIUM 141 mmol/L (136-145)
[2018-10-24 07:19] LABS: BUN 9 mg/dl (7-24); CREATININE 0.85 mg/dL (0.55-1.02)
[2018-10-24 08:00] VITALS: BP 162/66
--- NOTE | 2018-10-24 10:17 | NUR ---
24 HR CHART CHECK COMPLETE
[2018-10-24 12:00] VITALS: BP 140/78
[2018-10-24 16:00] VITALS: BP 157/83
[2018-10-24 20:00] VITALS: BP 139/69
[2018-10-25] VITALS: BP 151/71
[2018-10-25 08:00] VITALS: BP 145/73
--- NOTE | 2018-10-25 08:19 | NUR ---
PATIENT SITTING UP IN BED, EATING BREAKFAST. RESPIRATIONS EASY, REGULAR. PT DENIES ANY ABD PAIN. DENIES ANY N/V/D. PT EAGER FOR DISCHARGE. GOOD APPETITE. WILL CONTINUE TO MONITOR. VSS. CALL LIGHT WITHIN REACH.
[2018-10-25 08:59] LABS: BASO % 0.8 % (0.0-1.0); EOS # 0.5 10*3/uL (0.0-0.4); EOS % 8.9 % (1.0-4.0); HEMATOCRIT 33.1 % (37.0-47.0); HEMOGLOBIN 10.6 g/dl (12.0-16.0); LYMPH # 1.4 10*3/uL (1.3-4.4); LYMPH % 27.6 % (27.0-41.0); MEAN CELL VOLUME 85.5 fl (81.0-99.0); MEAN CORPUSCULAR HGB 27.4 pg (27.0-31.0); MEAN PLATELET VOLUME 9.8 fl (9.6-12.3); MONO # 0.4 10*3/uL (0.1-1.0); MONO % 7.9 % (3.0-9.0); NEUT # 2.8 10*3/uL (2.3-7.9); NEUT % 54.8 % (47.0-73.0); PLATELET COUNT AUTOMATED 234 10*3/uL (130-400); RED BLOOD COUNT 3.87 10*6/uL (4.10-5.10); RED CELL DISTRI WIDTH 14.7 % (0-14.5); WHITE BLOOD COUNT 5.2 10*3/uL (4.8-10.8)
--- NOTE | 2018-10-25 11:15 | NUR ---
ATTEMPTED TO REACH REGARDING DISCHARGE. LEFT MESSAGE ON CELL PHONE. AWAITING RETURN PHONE CALL.
[2018-10-25 12:00] VITALS: BP 146/78
[2018-10-25] MEDS ORDERED: Carafate1 GM/10 ML PO (15:21)
[2018-10-25] MEDS ORDERED: PROTONIX40 MG PO (15:21)
--- NOTE | 2018-10-25 16:53 | NUR ---
Discharge instructions reviewed with patient/family. Patient receptive and verbalizes understanding. Follow-up care arranged. Written instructions given to patient/family. NADINE MENDES.
--- NOTE | 2018-10-25 17:07 | NUR ---
FAMILY HERE FOR PATIENT.
== END 2018-10-25 17:07 | disposition home or self-care (01) | DRG 381 ==
LOC: ED 13:45 → EDHOLD 14:58 → 5E 14:58
PROVIDERS: Emergency Medicine; Student in an Organized Health Care Education/Training Program; ADMIT Internal Medicine
PROC: 0DB58ZX Excision of Esophagus, Via Natural or Artificial Opening Endoscopic, Diagnostic (ICD-10-PCS; principal; 2018-10-23)
PROC: 0DJD8ZZ Inspection of Lower Intestinal Tract, Via Natural or Artificial Opening Endoscopic (ICD-10-PCS; principal; 2018-10-23)
DX: K22.11 Ulcer of esophagus with bleeding (principal); E87.1 Hypo-osmolality and hyponatremia; J45.909 Unspecified asthma, uncomplicated; E11.65 Type 2 diabetes mellitus with hyperglycemia; E03.9 Hypothyroidism, unspecified; K21.9 Gastro-esophageal reflux disease without esophagitis; F32.9 Major depressive disorder, single episode, unspecified; G47.00 Insomnia, unspecified; E78.5 Hyperlipidemia, unspecified; E66.9 Obesity, unspecified; I12.9 Hypertensive chronic kidney disease with stage 1 through stage 4 chronic kidney disease, or unspecified chronic kidney disease; N18.3 Chronic kidney disease, stage 3 (moderate); E11.22 Type 2 diabetes mellitus with diabetic chronic kidney disease; K44.9 Diaphragmatic hernia without obstruction or gangrene; R00.0 Tachycardia, unspecified; K29.71 Gastritis, unspecified, with bleeding; K57.31 Diverticulosis of large intestine without perforation or abscess with bleeding; Z88.1 Allergy status to other antibiotic agents; Z88.2 Allergy status to sulfonamides; Z98.51 Tubal ligation status; Z82.49 Family history of ischemic heart disease and other diseases of the circulatory system; Z83.3 Family history of diabetes mellitus; Z82.61 Family history of arthritis; Z82.3 Family history of stroke; Z86.010 Personal history of colon polyps; Z79.82 Long term (current) use of aspirin; Z79.899 Other long term (current) drug therapy; Z68.26 Body mass index [BMI] 26.0-26.9, adult

== ENCOUNTER → 2018-11-25 | Outpatient (CLI) | payer OTHER ==
[~2018-11-25] MED LIST changes: +ASPIR 8181 MG PO; +Carafate1 GM/10 ML PO; +PROTONIX40 MG PO
== END | disposition home or self-care (01) ==
LOC: ORTHO 01:01
DX: S82.041D Displaced comminuted fracture of right patella, subsequent encounter for closed fracture with routine healing (principal); M17.11 Unilateral primary osteoarthritis, right knee; X58.XXXD Exposure to other specified factors, subsequent encounter

== ENCOUNTER → 2019-07-02 | Day surgery (SDC) | payer OTHER ==
[~2019-07-02] MED LIST changes: +KENALOG 0.1%80 GM T
[2019-07-02 12:51] VITALS: BP 156/73
[2019-07-02 14:31] VITALS: BP 140/64
[2019-07-02 14:46] VITALS: BP 135/67
[2019-07-02 15:01] VITALS: BP 121/62
== END | disposition home or self-care (01) ==
LOC: SDC 06-29 14:00
DX: K22.10 Ulcer of esophagus without bleeding (principal); K29.50 Unspecified chronic gastritis without bleeding; I10 Essential (primary) hypertension; K21.9 Gastro-esophageal reflux disease without esophagitis; F41.9 Anxiety disorder, unspecified; K44.9 Diaphragmatic hernia without obstruction or gangrene; I25.10 Atherosclerotic heart disease of native coronary artery without angina pectoris; E11.9 Type 2 diabetes mellitus without complications; F32.9 Major depressive disorder, single episode, unspecified; J44.9 Chronic obstructive pulmonary disease, unspecified; E78.00 Pure hypercholesterolemia, unspecified; Z90.89 Acquired absence of other organs; Z98.51 Tubal ligation status

== ENCOUNTER 2019-08-22 14:54 | Emergency (ER) | payer OTHER ==
[~2019-08-22] VITALS: Ht 167.6 cm; Wt 74.8 kg
[~2019-08-22 14:54] MED LIST changes: -KENALOG 0.1%80 GM T
[2019-08-22 14:55] VITALS: BP 143/72
[2019-08-22] MEDS ORDERED: KENALOG 0.1%80 GM T (15:08)
== END 2019-08-22 15:28 | disposition home or self-care (01) ==
LOC: ED 14:54
DX: S60.441A External constriction of left index finger, initial encounter (principal); J44.9 Chronic obstructive pulmonary disease, unspecified; E78.00 Pure hypercholesterolemia, unspecified; I10 Essential (primary) hypertension; K21.9 Gastro-esophageal reflux disease without esophagitis; I25.10 Atherosclerotic heart disease of native coronary artery without angina pectoris; E07.9 Disorder of thyroid, unspecified; Z88.1 Allergy status to other antibiotic agents; Z88.2 Allergy status to sulfonamides; Z88.8 Allergy status to other drugs, medicaments and biological substances; Z91.048 Other nonmedicinal substance allergy status; Z79.899 Other long term (current) drug therapy; Z79.82 Long term (current) use of aspirin; W49.04XA Ring or other jewelry causing external constriction, initial encounter; Y93.89 Activity, other specified; Y92.89 Other specified places as the place of occurrence of the external cause; Y99.8 Other external cause status

== ENCOUNTER → 2020-02-15 | Outpatient (CLI) | payer OTHER ==
[~2020-02-15] MED LIST changes: +KENALOG 0.1%80 GM T
== END | disposition home or self-care (01) ==
LOC: MAMMO 00:27
DX: Z12.31 Encounter for screening mammogram for malignant neoplasm of breast (principal)

== ENCOUNTER 2020-12-21 16:47 | Emergency (ER) | payer OTHER ==
[~2020-12-21] VITALS: Wt 74.8 kg
[2020-12-21 18:09] LABS: BASO % 0.3 % (0.0-1.0); EOS % 0.2 % (1.0-4.0); HEMATOCRIT 35.4 % (37.0-47.0); LYMPH # 1.2 10*3/uL (1.3-4.4); LYMPH % 18.7 % (27.0-41.0); MEAN CELL VOLUME 85.7 fl (81.0-99.0); MEAN CORPUSCULAR HGB 29.3 pg (27.0-31.0); MEAN CORPUSCULAR HGB CONC 34.2 g/dl (33.0-37.0); MEAN PLATELET VOLUME 10.1 fl (9.6-12.3); MONO # 0.4 10*3/uL (0.1-1.0); MONO % 5.7 % (3.0-9.0); NEUT # 4.6 10*3/uL (2.3-7.9); NEUT % 74.8 % (47.0-73.0); PLATELET COUNT AUTOMATED 240 10*3/uL (130-400); RED BLOOD COUNT 4.13 10*6/uL (4.10-5.10); RED CELL DISTRI WIDTH 13.6 % (0-14.5); WHITE BLOOD COUNT 6.1 10*3/uL (4.8-10.8)
[2020-12-21 18:21] LABS: BILIRUBIN Negative (Negative); BLOOD Negative (Negative); CLARITY Clear (Clear); COLOR Yellow (Yellow); GLUCOSE Negative (Negative); KETONE Negative (Negative); LEUKO ESTERASE Negative (Negative); NITRITE Negative (Negative); UROBILINOGEN 0.2 E.U./dl (0.0-1.0)
[2020-12-21 18:27] LABS: ALBUMIN 3.6 gm/dl (3.1-4.5); ALKALINE PHOSPHATASE 131 U/L (45-117); BUN 15 mg/dl (7-24); CHLORIDE 98 mmol/L (98-107); CREATININE 0.99 mg/dL (0.55-1.02); LIPASE 112 U/L (73-393); POTASSIUM 3.5 mmol/L (3.5-5.1); SGOT/AST 17 IU/L (3-35); SGPT/ALT 21 U/L (12-78); SODIUM 130 mmol/L (136-145); TOTAL PROTEIN 7.8 gm/dL (6.4-8.2)
[2020-12-21 18:36] LABS: RBC 0-2 rbc/hpf (0-2)
[2020-12-21 18:37] LABS: BACTERIA TRACE
[2020-12-21] MEDS ORDERED: ZOFRAN4 MG PO (19:42)
[2020-12-21 19:52] VITALS: BP 168/80
== END 2020-12-21 20:00 | disposition home or self-care (01) ==
LOC: ED 16:47
PROVIDERS: Physician Assistant
DX: A08.4 Viral intestinal infection, unspecified (principal); E11.9 Type 2 diabetes mellitus without complications; F32.9 Major depressive disorder, single episode, unspecified; J44.9 Chronic obstructive pulmonary disease, unspecified; I25.10 Atherosclerotic heart disease of native coronary artery without angina pectoris; K21.9 Gastro-esophageal reflux disease without esophagitis; F41.9 Anxiety disorder, unspecified; E78.00 Pure hypercholesterolemia, unspecified; Z88.8 Allergy status to other drugs, medicaments and biological substances; Z88.2 Allergy status to sulfonamides; Z79.899 Other long term (current) drug therapy; Z79.84 Long term (current) use of oral hypoglycemic drugs; Z79.82 Long term (current) use of aspirin; Z98.51 Tubal ligation status; Z98.890 Other specified postprocedural states

== ENCOUNTER → 2021-08-03 | Outpatient (CLI) | payer OTHER ==
[~2021-08-03] MED LIST changes: +ZOFRAN4 MG PO
== END | disposition home or self-care (01) ==
LOC: ORTHO 02:04
PROVIDERS: ATTEND Orthopaedic Surgery
DX: M25.511 Pain in right shoulder (principal); M25.512 Pain in left shoulder

== ENCOUNTER → 2021-08-30 | Outpatient (CLI) | payer OTHER | END | disposition home or self-care (01) | LOC: MAMMO 08-20 11:30 | PROVIDERS: ATTEND Physician Assistant | DX: Z12.31 Encounter for screening mammogram for malignant neoplasm of breast (principal) ==

== ENCOUNTER → 2022-12-10 | Outpatient (CLI) | payer OTHER | END | disposition home or self-care (01) | LOC: CT 09:12 | PROVIDERS: ATTEND Physician Assistant | DX: G44.209 Tension-type headache, unspecified, not intractable (principal) ==

== ENCOUNTER 2023-06-13 14:33 | Emergency (ER) | payer OTHER ==
[~2023-06-13] VITALS: Ht 167.6 cm; Wt 68.0 kg
[2023-06-13 14:45] VITALS: BP 124/70
[2023-06-13] MEDS ORDERED: VIBRAMYCIN100 MG PO (15:28)
[2023-06-13] MEDS ORDERED: PREDNISONE20 M1 PO (15:28)
== END 2023-06-13 16:22 | disposition home or self-care (01) ==
LOC: ED 14:33
DX: R60.9 Edema, unspecified (principal); Z88.8 Allergy status to other drugs, medicaments and biological substances; Z88.1 Allergy status to other antibiotic agents; Z88.2 Allergy status to sulfonamides; Z90.89 Acquired absence of other organs; Z98.51 Tubal ligation status; Z98.890 Other specified postprocedural states; E11.9 Type 2 diabetes mellitus without complications; F32.A Depression, unspecified; J45.909 Unspecified asthma, uncomplicated; J44.9 Chronic obstructive pulmonary disease, unspecified; E78.00 Pure hypercholesterolemia, unspecified; I25.10 Atherosclerotic heart disease of native coronary artery without angina pectoris; I10 Essential (primary) hypertension; K21.9 Gastro-esophageal reflux disease without esophagitis; F41.9 Anxiety disorder, unspecified

== ENCOUNTER → 2023-07-09 | Outpatient (CLI) | payer OTHER ==
[~2023-07-09] MED LIST changes: +PREDNISONE20 M1 PO; +VIBRAMYCIN100 MG PO
== END | disposition home or self-care (01) ==
LOC: US 14:00
PROVIDERS: ATTEND Internal Medicine
DX: M79.89 Other specified soft tissue disorders (principal)

== ENCOUNTER → 2023-07-10 | Outpatient (CLI) | payer OTHER | END | disposition home or self-care (01) | LOC: CARD 06-17 13:00 | PROVIDERS: ATTEND Physician Assistant | DX: I35.1 Nonrheumatic aortic (valve) insufficiency (principal); R01.1 Cardiac murmur, unspecified ==

== ENCOUNTER 2023-09-12 15:31 | Emergency (ER) | payer OTHER ==
[~2023-09-12] VITALS: Ht 167.6 cm; Wt 74.8 kg
[2023-09-12 15:48] VITALS: BP 168/99
== END 2023-09-12 16:55 | disposition home or self-care (01) ==
LOC: ED 15:31
DX: S63.502A Unspecified sprain of left wrist, initial encounter (principal); E11.9 Type 2 diabetes mellitus without complications; F32.A Depression, unspecified; J44.9 Chronic obstructive pulmonary disease, unspecified; E78.00 Pure hypercholesterolemia, unspecified; I25.10 Atherosclerotic heart disease of native coronary artery without angina pectoris; I10 Essential (primary) hypertension; K21.9 Gastro-esophageal reflux disease without esophagitis; F41.9 Anxiety disorder, unspecified; Z88.8 Allergy status to other drugs, medicaments and biological substances; Z88.1 Allergy status to other antibiotic agents; Z91.018 Allergy to other foods; Z88.2 Allergy status to sulfonamides; Z98.890 Other specified postprocedural states; Z90.89 Acquired absence of other organs; Z98.51 Tubal ligation status; W22.03XA Walked into furniture, initial encounter; Y93.89 Activity, other specified; Y92.89 Other specified places as the place of occurrence of the external cause; Y99.8 Other external cause status

== ENCOUNTER → 2023-11-06 | Outpatient (CLI) | payer OTHER | END | disposition home or self-care (01) | LOC: CT 00:22 | PROVIDERS: ATTEND Psychiatry & Neurology Neurology | DX: G45.9 Transient cerebral ischemic attack, unspecified (principal) ==

== ENCOUNTER → 2024-01-12 | Outpatient (CLI) | payer OTHER ==
[2024-01-12 13:00] LABS: BASO % 0.8 % (0.0-1.0); EOS % 0.3 % (1.0-4.0); HEMATOCRIT 33.9 % (37.0-47.0); LYMPH # 1.3 10*3/uL (1.3-4.4); MEAN CELL VOLUME 84.3 fl (81.0-99.0); MEAN CORPUSCULAR HGB 28.1 pg (27.0-31.0); MEAN CORPUSCULAR HGB CONC 33.3 g/dl (33.0-37.0); MEAN PLATELET VOLUME 9.4 fl (9.6-12.3); MONO # 0.4 10*3/uL (0.1-1.0); MONO % 9.4 % (3.0-9.0); NEUT # 2.3 10*3/uL (2.3-7.9); NEUT % 57.2 % (47.0-73.0); PLATELET COUNT AUTOMATED 230 10*3/uL (130-400); RED BLOOD COUNT 4.02 10*6/uL (4.10-5.10); RED CELL DISTRI WIDTH 13.9 % (0-14.5); WHITE BLOOD COUNT 3.9 10*3/uL (4.8-10.8)
[2024-01-12 13:37] LABS: ALKALINE PHOSPHATASE 97 U/L (46-116); BUN 14 mg/dl (9-23); CHLORIDE 100 mmol/L (98-107); POTASSIUM 4.1 mmol/L (3.4-5.1); SGPT/ALT 10 U/L (5-49); TOTAL PROTEIN 7.2 gm/dL (6.0-8.0)
== END | disposition home or self-care (01) ==
LOC: LAB 12:38
PROVIDERS: ATTEND Psychiatry & Neurology Neurology
DX: I10 Essential (primary) hypertension (principal); E11.9 Type 2 diabetes mellitus without complications; J30.89 Other allergic rhinitis; G45.9 Transient cerebral ischemic attack, unspecified; R41.3 Other amnesia

== ENCOUNTER 2025-03-07 14:19 | Emergency (ER) | payer OTHER ==
[~2025-03-07] VITALS: Ht 167.6 cm; Wt 72.6 kg
[2025-03-07 14:34] VITALS: BP 189/84
[2025-03-07] MEDS ORDERED: SODIUM CHLORIDE 0.9% 1,000 ML IV ONE (18:05)
[2025-03-07 18:16] LABS: BASO % 0.6 % (0.0-1.0); EOS # 0.2 10*3/uL (0.0-0.4); HEMATOCRIT 33.5 % (37.0-47.0); MEAN CELL VOLUME 85.5 fl (81.0-99.0); MEAN CORPUSCULAR HGB 28.8 pg (27.0-31.0); MEAN CORPUSCULAR HGB CONC 33.7 g/dl (33.0-37.0); MEAN PLATELET VOLUME 9.2 fl (9.6-12.3); MONO # 0.4 10*3/uL (0.1-1.0); MONO % 6.1 % (3.0-9.0); NEUT # 4.6 10*3/uL (2.3-7.9); NEUT % 68.2 % (47.0-73.0); PLATELET COUNT AUTOMATED 277 10*3/uL (130-400); RED BLOOD COUNT 3.92 10*6/uL (4.10-5.10); RED CELL DISTRI WIDTH 13.5 % (0-14.5); WHITE BLOOD COUNT 6.7 10*3/uL (4.8-10.8)
[2025-03-07 18:37] LABS: ALKALINE PHOSPHATASE 125 U/L (46-116); BUN 9 mg/dl (9-23); CHLORIDE 93 mmol/L (98-107); POTASSIUM 3.9 mmol/L (3.4-5.1); SGPT/ALT 14 U/L (5-49); TOTAL PROTEIN 7.1 gm/dL (6.0-8.0)
[2025-03-07] MEDS ORDERED: Ondansetron4 MG PO (18:54)
[2025-03-07] MEDS ORDERED: LOPERAMIDE HCL2 MG PO (18:54)
== END 2025-03-07 19:03 | disposition home or self-care (01) ==
LOC: ED 14:19
PROVIDERS: Internal Medicine
DX: K52.9 Noninfective gastroenteritis and colitis, unspecified (principal); I10 Essential (primary) hypertension; E11.9 Type 2 diabetes mellitus without complications; J45.909 Unspecified asthma, uncomplicated; J44.9 Chronic obstructive pulmonary disease, unspecified; E78.00 Pure hypercholesterolemia, unspecified; F32.A Depression, unspecified; F41.9 Anxiety disorder, unspecified; I25.10 Atherosclerotic heart disease of native coronary artery without angina pectoris; Z79.82 Long term (current) use of aspirin; Z79.899 Other long term (current) drug therapy; Z88.1 Allergy status to other antibiotic agents; Z88.2 Allergy status to sulfonamides; Z88.8 Allergy status to other drugs, medicaments and biological substances; Z90.89 Acquired absence of other organs; Z98.51 Tubal ligation status; Z98.890 Other specified postprocedural states